=== PATIENT | male | born 1980 | race Caucasian/White ===

== ENCOUNTER 2023-07-20 07:30 | Day surgery (SDC) | payer MEDICAID ==
[~2023-07-20] VITALS: Ht 188 cm; Wt 61.7 kg
[2023-07-20] MEDS ORDERED: MIDAZOLAM HCL 5 MG/5 ML VIAL ONE (07:49)
[2023-07-20] MEDS ORDERED: MEPERIDINE 100 MG INJ. 100 MG/ML VIAL ONE (07:49)
[2023-07-20] MEDS ORDERED: BENZOCAINE 20% 0.5mL UD SPRAY MM ONE (08:44)
[2023-07-20 13:46] VITALS: O2SAT 99
[2023-07-20 19:24] VITALS: BP_SYST 133; PULSE 93; RESP 8
== END 2023-07-20 10:30 | disposition home or self-care (01) ==
LOC: SDS 07:30 → SMU 07:32 → SDS 10:30
PROVIDERS: ATTEND Student in an Organized Health Care Education/Training Program
DX: R19.7 Diarrhea, unspecified (principal); K29.50 Unspecified chronic gastritis without bleeding; K21.9 Gastro-esophageal reflux disease without esophagitis; Z91.040 Latex allergy status
CPT/HCPCS: 43239; 99152; 88305; 88313; G0378; J2250; J2175